=== PATIENT | male | born 1975 | race Caucasian/White ===

== ENCOUNTER 2018-07-22 18:00 | Emergency (ER) | payer MEDICAID ==
[~2018-07-22] VITALS: Ht 170.2 cm; Wt 81.6 kg
[2018-07-22 18:08] VITALS: BP 145/87
[2018-07-22] MEDS ORDERED: KETOROLAC TROMETHAMINE INJ 30 MG/ML VIAL IM ONE (18:30)
[2018-07-22] MEDS ORDERED: KETOROLAC TROMETHAMINE INJ 30 MG/ML VIAL ONE (18:37)
== END 2018-07-22 19:21 | disposition home or self-care (01) ==
LOC: ER 18:10
DX: S46.092A Other injury of muscle(s) and tendon(s) of the rotator cuff of left shoulder, initial encounter (principal); M75.22 Bicipital tendinitis, left shoulder; X58.XXXA Exposure to other specified factors, initial encounter; Y93.89 Activity, other specified; Y92.89 Other specified places as the place of occurrence of the external cause; Y99.8 Other external cause status
CPT/HCPCS: J1885

== ENCOUNTER 2023-05-26 18:45 | Emergency (ER) | payer MEDICAID ==
[~2023-05-26] VITALS: Ht 177.8 cm; Wt 81.6 kg
[2023-05-26] MEDS ORDERED: BACI/NEOM/POLY B OINT PKT 1 UDPKT PACKET TP ONE (19:30)
[2023-05-26] MEDS ORDERED: TDAP [DIPH/PERTUSSIS/TET] 0.5 ML VIAL IM ONE ×2 (19:30→19:43)
[2023-05-26 19:52] VITALS: BP 142/87; TEMP 98.2; O2SAT 99
== END 2023-05-26 19:52 | disposition home or self-care (01) ==
LOC: ER 18:51
DX: S61.303A Unspecified open wound of left middle finger with damage to nail, initial encounter (principal); W27.0XXA Contact with workbench tool, initial encounter; Y93.89 Activity, other specified; Y92.89 Other specified places as the place of occurrence of the external cause; Y99.0 Civilian activity done for income or pay
CPT/HCPCS: 90715

== ENCOUNTER 2023-10-23 10:50 | Emergency (ER) | payer MEDICAID, OTHER ==
[~2023-10-23] VITALS: Ht 167.6 cm; Wt 81.6 kg
[2023-10-23] MEDS ORDERED: NAPR-1009 PO (11:49)
[2023-10-23 11:56] VITALS: BP 128/87; TEMP 98; O2SAT 97
== END 2023-10-23 11:57 | disposition home or self-care (01) ==
LOC: ER 10:54
DX: M25.512 Pain in left shoulder (principal)
CPT/HCPCS: 73030-TC